=== PATIENT | male | born 1975 | race Caucasian/White ===

== ENCOUNTER 2022-10-21 16:00 | Inpatient (IN) | payer OTHER ==
[2022-10-21 17:46] VITALS: BMI 31.7
[2022-10-21] MEDS ORDERED: NALOXONE HCL 0.4 MG/ML VIAL IM PRN (18:02)
[2022-10-21] MEDS ORDERED: ACETAMINOPHEN 325 MG TABLET (FP) PO PRN ×2 (18:02)
[2022-10-21] MEDS ORDERED: NALOXONE HCL (KLOXXADO) 8 MG SPRAY NS PRN (18:02)
[2022-10-21] MEDS ORDERED: guaiFENesin 200 MG/10 ML 10 ML UNIT-DOSE CUPS PO PRN (18:02)
[2022-10-21] MEDS ORDERED: POLYETHYLENE GLYCOL (HEALTHYLAX) 3350 17 GM PACKET PO PRN (18:02)
[2022-10-21] MEDS ORDERED: MAGNESIUM HYDROX 2400MG/30ML ORAL SUSPENSION 30 ML CUP PO PRN (18:02)
[2022-10-21] MEDS ORDERED: BISMUTH SUBSALICYLATE 524 MG/30 ML PO PRN (18:02)
[2022-10-21] MEDS ORDERED: IBUPROFEN 400 MG TABLET (FP) PO PRN (18:02)
[2022-10-21] MEDS ORDERED: MAG HYDROX/AL HYDROX/SIMETH 30 ML UNIT-DOSE CUP PO PRN (18:02)
[2022-10-21] MEDS ORDERED: BENZOCAINE/MENTHOL (CHLORASEPTIC ) LOZENGE MM PRN (18:02)
[2022-10-21] MEDS ORDERED: ONDANSETRON *ODT* 4 MG TABLET SL PRN (18:02)
[2022-10-21] MEDS ORDERED: IBUPROFEN 600 MG TABLET (FP) PO PRN (18:02)
[2022-10-21] MEDS ORDERED: LOPERAMIDE HCL 2 MG CAPSULE PO PRN (18:02)
[2022-10-21] MEDS ORDERED: P-EPHED 60MG/TRIPROLIDI 2.5MG TABLET PO PRN (18:02)
[2022-10-21] MEDS ORDERED: DICYCLOMINE HCL 10 MG CAPSULE PO PRN (18:02)
[2022-10-21] MEDS ORDERED: CEPHALEXIN MONOHYDRATE 500 MG CAPSULE (UD) PO SCH (20:45)
[2022-10-21] MEDS: METHOCARBAMOL 500 MG TABLET PO PRN (22:28)
[2022-10-21] MEDS: cloNIDine HCL 0.1 MG TABLET PO PRN (22:29)
[2022-10-21] MEDS: THIAMINE HCL 100 MG TABLET (FP) PO SCH (22:29)
[2022-10-21] MEDS: SULFAMETHOXAZOLE/TRIMETHOPRIM 800MG/160MG D.S. TABLET PO SCH (22:30)
[2022-10-21] MEDS: hydrOXYzine PAMOATE 25 MG CAPSULE (FP) PO PRN (22:30)
[2022-10-21] MEDS: CEPHALEXIN MONOHYDRATE 500 MG CAPSULE (UD) PO SCH (23:02)
[2022-10-22] MEDS: CEPHALEXIN MONOHYDRATE 500 MG CAPSULE (UD) PO SCH ×4 (05:38→23:04)
[2022-10-22] MEDS ORDERED: methaDONE HCL 10 MG TABLET (FOR DETOX USE ONLY) PO ONE (10:00)
[2022-10-22] MEDS: LOSARTAN POTASSIUM 50 MG TABLET PO SCH (10:15)
[2022-10-22] MEDS: PRENATAL VITAMINS W/ FOLIC ACID TABLET (FP) PO SCH (10:15)
[2022-10-22] MEDS: SULFAMETHOXAZOLE/TRIMETHOPRIM 800MG/160MG D.S. TABLET PO SCH ×2 (10:22→22:28)
[2022-10-22] MEDS: METHOCARBAMOL 500 MG TABLET PO PRN ×2 (10:23→22:28)
[2022-10-22] MEDS: hydrOXYzine PAMOATE 25 MG CAPSULE (FP) PO PRN (10:23)
[2022-10-22 11:32] LABS: HEMATOCRIT 30.5 % (35.4-49); HEMOGLOBIN 9.8 GM/dL (11.7-16.9); MCH 24.3 pg (25.7-33.7); MCHC 32.2 g/dl (32.0-35.9); MEAN CELL VOLUME 75.3 fl (80-96); MEAN PLT VOLUME 7.5 fl (7.5-11.1); PLATELET COUNT 483 10^3/uL (134-434); RBC 4.05 M/mm3 (4.00-5.60); WHITE BLOOD COUNT 6.8 K/mm3 (4.0-10.0)
[2022-10-22 12:04] LABS: ALBUMIN 2.2 g/dl (3.4-5.0); BLOOD UREA NITROGEN 18.5 mg/dL (7-18); CALCIUM 8.2 mg/dL (8.5-10.1)
[2022-10-22 12:08] LABS: CREATININE 0.9 mg/dL (0.55-1.3)
[2022-10-22 12:09] LABS: BILIRUBIN,TOTAL 0.3 mg/dL (0.2-1); TOT PROT 5.5 g/dl (6.4-8.2)
[2022-10-22] MEDS: cloNIDine HCL 0.1 MG TABLET PO PRN ×2 (17:38→22:28)
[2022-10-22 18:09] LABS: HIV INTERPRETATION NEGATIVE (NEGATIVE)
[2022-10-22] MEDS: diazePAM 5 MG TABLET PO PRN (22:28)
[2022-10-22] MEDS: THIAMINE HCL 100 MG TABLET (FP) PO SCH (22:28)
[2022-10-22] MEDS: MELATONIN 5 MG TABLETS PO PRN (22:31)
[2022-10-23] MEDS: CEPHALEXIN MONOHYDRATE 500 MG CAPSULE (UD) PO SCH ×4 (05:31→23:07)
[2022-10-23] MEDS: diazePAM 5 MG TABLET PO PRN ×4 (05:34→22:07)
[2022-10-23] MEDS: cloNIDine HCL 0.1 MG TABLET PO PRN ×4 (05:34→22:07)
[2022-10-23] MEDS: METHOCARBAMOL 500 MG TABLET PO PRN ×2 (10:37→22:07)
[2022-10-23] MEDS: PRENATAL VITAMINS W/ FOLIC ACID TABLET (FP) PO SCH (10:38)
[2022-10-23] MEDS: LOSARTAN POTASSIUM 50 MG TABLET PO SCH (10:38)
[2022-10-23] MEDS: SULFAMETHOXAZOLE/TRIMETHOPRIM 800MG/160MG D.S. TABLET PO SCH ×2 (10:38→22:07)
[2022-10-23] MEDS: THIAMINE HCL 100 MG TABLET (FP) PO SCH (22:07)
[2022-10-23] MEDS: MELATONIN 5 MG TABLETS PO PRN (22:07)
[2022-10-24] MEDS: diazePAM 5 MG TABLET PO PRN ×4 (05:48→21:52)
[2022-10-24] MEDS: CEPHALEXIN MONOHYDRATE 500 MG CAPSULE (UD) PO SCH ×4 (05:49→23:40)
[2022-10-24] MEDS ORDERED: methaDONE HCL 10 MG TABLET (FOR DETOX USE ONLY) PO ONE (10:00)
[2022-10-24] MEDS: LOSARTAN POTASSIUM 50 MG TABLET PO SCH (10:05)
[2022-10-24] MEDS: PRENATAL VITAMINS W/ FOLIC ACID TABLET (FP) PO SCH (10:05)
[2022-10-24] MEDS: SULFAMETHOXAZOLE/TRIMETHOPRIM 800MG/160MG D.S. TABLET PO SCH ×2 (10:05→21:52)
[2022-10-24 10:42] LABS: HEMATOCRIT 36.3 % (35.4-49); HEMOGLOBIN 11.8 GM/dL (11.7-16.9); MCH 24.5 pg (25.7-33.7); MCHC 32.4 g/dl (32.0-35.9); MEAN CELL VOLUME 75.4 fl (80-96); MEAN PLT VOLUME 7.6 fl (7.5-11.1); PLATELET COUNT 547 10^3/uL (134-434); RBC 4.82 M/mm3 (4.00-5.60); RDW 18.7 % (11.9-15.9); WHITE BLOOD COUNT 8.1 K/mm3 (4.0-10.0)
[2022-10-24 10:59] LABS: ALBUMIN 2.5 g/dl (3.4-5.0); BLOOD UREA NITROGEN 16.9 mg/dL (7-18); CALCIUM 8.4 mg/dL (8.5-10.1)
[2022-10-24 11:00] LABS: CREATININE 1.1 mg/dL (0.55-1.3)
[2022-10-24 11:04] LABS: TOT PROT 6.6 g/dl (6.4-8.2)
[2022-10-24 11:07] LABS: BILIRUBIN,TOTAL 0.4 mg/dL (0.2-1)
[2022-10-24] MEDS: cloNIDine HCL 0.1 MG TABLET PO PRN ×2 (17:19→21:52)
[2022-10-24] MEDS: FERROUS SO4 325 MG TABLET (FP) PO SCH (17:46)
[2022-10-24] MEDS: THIAMINE HCL 100 MG TABLET (FP) PO SCH (21:52)
[2022-10-24] MEDS: METHOCARBAMOL 500 MG TABLET PO PRN (21:53)
[2022-10-25] MEDS: CEPHALEXIN MONOHYDRATE 500 MG CAPSULE (UD) PO SCH (05:43)
[2022-10-25] MEDS: diazePAM 5 MG TABLET PO PRN (05:44)
[2022-10-25] MEDS: cloNIDine HCL 0.1 MG TABLET PO PRN (05:45)
[2022-10-25] MEDS: FERROUS SO4 325 MG TABLET (FP) PO SCH (07:30)
[2022-10-25] MEDS: LOSARTAN POTASSIUM 50 MG TABLET PO SCH (10:02)
[2022-10-25] MEDS: PRENATAL VITAMINS W/ FOLIC ACID TABLET (FP) PO SCH (10:02)
[2022-10-25] MEDS: SULFAMETHOXAZOLE/TRIMETHOPRIM 800MG/160MG D.S. TABLET PO SCH (10:02)
[2022-10-25 11:11] VITALS: BP 127/84; PULSE 90; RESP 16; TEMP 97.8
[2022-10-26] MEDS ORDERED: methaDONE HCL 10 MG TABLET (FOR DETOX USE ONLY) PO ONE (10:00)
== END 2022-10-25 10:48 | disposition left against medical advice (07) | DRG 770 ==
LOC: YASAS 16:00 → Y3N 18:59
PROVIDERS: ADMIT Allergy & Immunology; ATTEND Surgery
PROC: HZ2ZZZZ Detoxification Services for Substance Abuse Treatment (ICD-10-PCS; principal; 2022-10-22)
DX: F11.23 Opioid dependence with withdrawal (principal); F98.8 Other specified behavioral and emotional disorders with onset usually occurring in childhood and adolescence; I10 Essential (primary) hypertension; Z28.310 Unvaccinated for COVID-19; Z28.9 Immunization not carried out for unspecified reason
CPT/HCPCS: 36415; 80053; 82607; 82746; 83540; 83550; 85027; 85045; 86780; 87389; 87811; C9803-CS; Q0162; U0003; U0005